=== PATIENT | female | born 1995 | race Caucasian/White ===

== ENCOUNTER 2023-12-13 08:15 | Emergency (ER) | payer OTHER, SELFPAY ==
[2023-12-13 08:29] VITALS: BP 123/64; PULSE 79; RESP 16; TEMP 36.8; O2SAT 99
--- NOTE | 2023-12-13 08:43 | ED.URI ---
HPI - URI/Sore Throat General Chief Complaint: Ear Stated Complaint: Sore Throat Time Seen by Provider: 12/13/23 08:43 Source: patient Mode of arrival: ambulatory Limitations: no limitations History of Present Illness HPI Narrative: 28-year-old female presenting for complaint of left ear pain for about 5 days, with a sore throat over the past couple of days. Endorses seeing white spots to the back of her throat. Endorses painful swallow. Denies Tinnitus, decreased hearing, or ear drainage. Denies nasal congestion, cough, shortness of breath, nausea, vomiting, diarrhea, fevers or chills. Related Data Home Medications Medication Instructions Recorded Confirmed levonorgestrel 0.15 mg-ethinyl 1 tablet PO DAILY 12/13/23 12/13/23 estradiol 30 mcg tablets,3 mos pack(91) (Ángel) prazosin 2 mg capsule 2 mg PO HS 12/13/23 12/13/23 Allergies Allergy/AdvReac Type Severity Reaction Status Date / Time No Known Allergies Allergy Verified 12/13/23 08:41 Review of Systems Review of Systems: CONSTITUTIONAL: Denies malaise, chills, or fever. EYES: Denies visual changes, redness, or discharge. ENT: Denies rhinorrhea, congestion, sinus pain, Reports ear pain, Sore throat CARDIOVASCULAR: Denies chest pain, palpitations, or edema. RESPIRATORY: Denies cough or dyspnea. GASTROINTESTINAL: Denies abdominal pain, nausea, vomiting, diarrhea SKIN: Denies rash or itching. MUSCULOSKELETAL: Denies myalgia. NEUROLOGIC: Denies headache. All systems reviewed & are unremarkable except as noted in HPI and below [facility] Comments At time of signature, agree with nursing past medical, surgical, social and family history. There is no relevant family history pertinent to the presenting complaint Exam Narrative: GENERAL: Well-appearing EYES: PERRLA, conjunctivae clear ENT: Nares clear. Mucous membranes moist. TMs pearly marrero with dull light reflex and serous fluid bilaterally; no tragal tenderness. Oropharynx erythematous Tonsils not enlarged and without exudate, no drooling, no hoarseness, no trismus, uvula midline. NECK: Supple. No lymphadenopathy CHEST: Clear to auscultation, breath sounds equal. No wheezing, rhonchi, rales, or stridor. No respiratory distress, speaks in full sentences. HEART: Regular rate and rhythm. No murmur heard. SKIN: Warm, dry, no rash. NEURO: Alert and oriented x3. PSYCH: Normal mood and affect Course Course Emergency Course: Patient is aware of diagnosis, understands and agrees to treatment plan. Anticipatory guidance given. Patient agrees to follow-up as directed and is aware of reasons to seek care at the emergency department. Portions of this record may have been created with voice recognition software Level of Care: Express Care Visit Vital Signs Vital signs: Vital Signs Oxygen Delivery Room Air 12/13/23 08:25 Temperature 98.2 F 12/13/23 08:29 Pulse Rate 79 12/13/23 08:29 Respiratory Rate 16 12/13/23 08:29 Blood Pressure 123/64 12/13/23 08:29 Pulse Oximetry 99 12/13/23 08:29 Oxygen Delivery Room Air 12/13/23 08:29 Reviewed MDM - URI/Sore Throat MDM Narrative Medical decision making narrative: Negative strep test. Will send abx based on pe and cc. Results reviewed with patient. Discussed physical exam findings. Advised supportive measures and signs/symptoms to go to the ER. Pt is appropriate for outpt treatment and f/u. Differential Diagnosis Differential diagnosis: Likely upper respiratory infection, otitis media, sinusitis, viral infection, influenza and pharyngitis Lab Data Labs: Strep Screen Presumptive Negative *(Reference Range: Negative)* Discharge Plan Discharge Clinical Impression: Pharyngitis Patient Disposition: Home, Self-Care Condition: Stable Instructions: Antibiotic Form, Pharyngitis (ED) Additional Instructions: Rapid strep swab was negative today If s
== END 2023-12-13 08:55 | disposition home or self-care (01) ==
PROVIDERS: Emergency Provider Nurse Practitioner Family
DX: J02.9 Acute pharyngitis, unspecified (principal); Z79.899 Other long term (current) drug therapy
CPT/HCPCS: 87081; 87880; 99213; G0463

== ENCOUNTER 2024-09-21 08:18 | Emergency (ER) | payer OTHER, SELFPAY ==
--- NOTE | 2024-09-21 08:19 | ED.URI ---
HPI - URI/Sore Throat General Chief Complaint: Upper Respiratory Infection Stated Complaint: Bodyaches Time Seen by Provider: 09/21/24 08:19 Source: patient Mode of arrival: ambulatory Limitations: no limitations History of Present Illness HPI Narrative: Sam is a 29-year-old female patient presenting to the clinic today with complaints of runny nose, cough, sore throat, body aches, and joint pain that started yesterday. She denies any known fever or chills. States she is having swelling to her feet and to her hands and is unable to wear her jewelry. C/o joint pain to all her joints. History of celiac disease. No other history of autoimmune disorder or fibromyalgia. No known sick contacts. MD elicited complaint: sore throat, nasal congestion and other (Body aches, joint pain) Related Data Home Medications ?Medication ?Instructions ?Recorded ?Confirmed ?Last Taken ?Type levonorgestrel 0.15 mg-ethinyl 1 tablet PO DAILY 12/13/23 09/21/24 Unknown History estradiol 30 mcg tablets,3 mos pack(91) (Ángel) Allergies Allergy/AdvReac Type Severity Reaction Status Date / Time No Known Allergies Allergy Verified 09/21/24 08:21 Review of Systems Review of Systems: Pertinent positives per HPI. Patient denies any fever, chills, rash, headache, visual changes, dizziness, shortness of breath, chest pain, palpitations, nausea, vomiting, diarrhea, constipation, abdominal pain, or any urinary issues. PMFSH Comments At the time of my signature, I reviewed and agree with the nursing past medical, surgical, social, and family history. There is no relevant family history pertinent to the patient complaint. Exam Narrative: General: Well-developed, overweight in no apparent distress Head: Normocephalic, atraumatic Eyes: Pupils equally round and reactive to light bilaterally, EOM intact, sclera and conjunctive clear, no discharge, lids normal Ears: TMs intact and congested, ear canals clear, no drainage, grossly hearing normal. Nose: Nares patent, clear discharge, no inflammation, no sinus tenderness. Mouth: Oral pharynx mildly red without lesions or masses, good dentition, MMM. Postnasal drip Neck: Supple, trachea midline, no enlargement of anterior or posterior cervical nodes, no thyroid masses or goiter palpable. Cardio: Regular rate and rhythm, s1 and s2 normal, no murmur appreciated. Resp: Clear to auscultation bilaterally, no rhonchi, rales, wheezing or rubs Musculoskeletal: No deformity, tender to palpation over the hands, feet, and knees joints with mild swelling, grossly normal range of motion, muscle strength strong and equal, peripheral pulse strong,no cyanosis, normal gait and station Course Course Emergency Course: Portions of this record may have been created with voice recognition software. Level of Care: Express Care Visit Vital Signs Vital signs: Vital Signs Temperature 36.6 C 09/21/24 08:26 Pulse Rate 95 09/21/24 08:26 Respiratory Rate 16 09/21/24 08:26 Blood Pressure 104/62 09/21/24 08:26 Pulse Oximetry 100 09/21/24 08:26 Oxygen Delivery Room Air 09/21/24 08:26 Temperature 36.6 C 09/21/24 08:26 Pulse Rate 95 09/21/24 08:26 Respiratory Rate 16 09/21/24 08:26 Blood Pressure 104/62 09/21/24 08:26 Pulse Oximetry 100 09/21/24 08:26 Oxygen Delivery Room Air 09/21/24 08:26 Vital signs reviewed MDM - URI/Sore Throat MDM Narrative Medical decision making narrative: At the time of visit patient is resting comfortably on the exam table. Patient appears to be nontoxic. Labs: COVID, influenza, and strep are all negative in the clinic today. We will send strep for culture. Plan: I suspect patient has URI/pharyngitis/joint pain. Will send in prescription for Medrol Dosepak. Supportive measures were discussed with the patient and they voiced understanding discharge instructions and agrees to treatment plan. Return precautions reviewed Differential Diagnosis Differential diagnosis: Likely upper respiratory infection, otitis media, sinusitis, viral infection, bronchitis, influenza, pharyngitis and other (COVID) Discharge Plan Discharge Clinical Impression: PND (post-nasal drip) Upper respiratory infection Qualifiers: URI type: unspecified URI Qualified Code(s): J06.9 - Acute upper respiratory infection, unspecified Pharyngitis Qualifiers: Pharyngitis/tonsillitis etiology: unspecified etiology Qualified Code(s): J02.9 - Acute pharyngitis, unspecified Joint pain Qualifiers: Joint pain location: unspecified Qualified Code(s): M25.50 - Pain in unspecified joint Patient Disposition: Home, Self-Care Condition: Stable Instructions: Antibiotic Form, Pharyngitis (ED), Cold Symptoms (ED) Additional Instructions: COVID, influenza, and strep were negative in the clinic today. We will send strep for culture if this comes back positive we will contact him place you on antibiotics at that time. Take prescription medications only as prescribed-Medrol Dosepak Increase fluids and stay well hydrated Tylenol/motrin for pain/fever Flonase and OTC antihistamines as directed Vicks vapor rub to open sinuses Sinus rinses for congestion Cepacol spray, cough drops, throat lozenges, warm tea with honey/lemon, gargle salt water to soothe throat BRAT diet for diarrhea Clear liquids x 24 hours then advance as tolerated for nausea/vomiting Go to the ED if you develop a worsening in your condition- high fever not controlled by Tylenol or Motrin, dehydration, weakness, lethargy, shortness of breath, or chest pain. Follow up with your PCP in 3-5 days if symptoms persist. Patient Language: Beninese Prescriptions: New methylprednisolone [Medrol (Sebastien)] 4 mg tablets,dose pack See Rx Instructions PO .COMPLEX Qty: 21 0RF Rx Instructions: orally per package directions No Action levonorgestrel-ethinyl estrad [Jolessa] 0.15 mg-30 mcg (91) tablets,dose pack,3 month 1 tablet PO DAILY Follow-up/Referrals: Yonis,Ailyn Preez MD [Primary Care Provider] - Stand Alone Forms: Work/School Release IP Time of Disposition: 08:48 Quality NIHSS Nursing Documentation ED NIHSS nursing documentation: reviewed/agree
[2024-09-21 08:26] VITALS: BP 104/62; PULSE 95; RESP 16; TEMP 36.6; O2SAT 100
[2024-09-21 08:52] LABS: EDCOVIDSCREEN Negative (Negative); EDINFLUASCREEN Negative (Negative); EDINFLUBSCREEN Negative (Negative); EDSTREPNEGPOS1 Negative (Negative)
== END 2024-09-21 08:55 | disposition home or self-care (01) ==
PROVIDERS: Emergency Provider Nurse Practitioner Family; PCP Internal Medicine
DX: R09.82 Postnasal drip (principal); J06.9 Acute upper respiratory infection, unspecified; J02.9 Acute pharyngitis, unspecified; M25.542 Pain in joints of left hand; M25.541 Pain in joints of right hand; M25.572 Pain in left ankle and joints of left foot; M25.571 Pain in right ankle and joints of right foot; M25.562 Pain in left knee; M25.561 Pain in right knee; Z20.822 Contact with and (suspected) exposure to COVID-19
CPT/HCPCS: 87081; 87426; 87804; 87880; 99213; G0463